=== PATIENT | male | born 1975 | race Caucasian/White ===

== ENCOUNTER 2021-02-15 17:46 | Emergency (ER) | payer BC, SELFPAY ==
[2021-02-15 17:47] VITALS: BP 110/72; PULSE 103; PULSE 89; RESP 16; RESP 18; TEMP 37.6; O2SAT 96; BMI 25.0
--- NOTE | 2021-02-15 18:31 | EX.ED.DYSGE1 ---
HPI History of Present Illness Chief Complaint: Cold Sx Informant: patient Narrative Narrative: Patient presents with nasal congestion and a lot of clear rhinorrhea. He states everyone in his family has had this. His biggest concern is that he does not have Covid before he goes back to work. Work does no longer do Covid testing. He has not been coughing or short of breath. He has a little bit of pressure at the nose. He felt a little bit dizzy this morning but that is better. His had the exact same symptoms. Nothing specifically makes his symptoms better or worse. Patient is overall healthy. No chronic medical conditions No allergies No medications. PFSH PFSH no medical history Allergy/AdvReac Type Severity Reaction Status Date / Time No Known Allergies Allergy Verified 06/30/17 14:10 Social History Smoking Status: Never smoker ROS ROS ED Constitutional Constitutional ED: Denies chills, fever(s) or sweats Eyes Eyes: Denies blurry vision, change in vision or diplopia ENT ENT ED: Reports rhinorrhea; Denies ear pain or sore throat Cardiovascular Cardiovascular: Denies chest pain or palpitations Respiratory/Chest Respiratory/Chest: Denies cough or dyspnea Gastrointestinal Gastrointestinal: Denies abdominal pain, nausea or vomiting Integumentary Denies rash Neurologic Neurologic: Denies headache(s), paresthesias or weakness Allergic/Immunologic Allergic/Immunologic ED: Denies mouth swelling or tongue swelling EXAM Physical Exam Const Vital Signs: 02/15/21 17:47 02/15/21 18:36 Temperature 99.6 F H Temperature Source Temporal Pulse Rate 103 H Respiratory Rate 18 Respiratory Effort Normal Non-Labored Respiratory Pattern Normal Blood Pressure 110/72 Blood Pressure Mean 84 Pulse Ox 96 Oxygen Delivery Method Room Air Positive well nourished and well developed General Appearance ED: well developed and NAD HEENT Reports TM's clear and moist mucous membranes HEENT Narrative: Oropharynx is clear. There is some mild clear rhinorrhea. No purulent discharge. No sinus tenderness. Negative for trauma Tympanic Membrane ED: Yes TM's clear Eyes EOMs intact bilaterally Neck no lymphadenopathy and supple Chest Wall inspection of chest normal Resp normal respiratory effort and clear to auscultation bilaterally Auscultation: Negative for wheezes Cardio regular rate and regular rhythm GI normal to inspection, nondistended, normoactive bowel sounds and non-tender Palpation: soft Extremity normal to inspection Neuro Sensorium / Orientation: alert Psych mental status grossly normal Skin no rashes or lesions noted MDM MDM MDM Narrative Medical decision making narrative: Patient will be screened for Covid. He would like to go home pending the study. His symptoms match a mild viral illness. I do not think he needs antibiotics or any other therapy. Discharge Plan Triage Chief Complaint: Cold Sx ED Provider: Daniel Delvalle Dx/Rx/DC Orders Clinical Impression: URI (upper respiratory infection) Primary Care Provider: Care Physician,Marquita Primary Referrals: Care Physician,No Primary [Primary Care Provider] - Tim Rodriguez DO [STAFF PHYSICIAN] - As Needed Disposition Disposition: Home, Self Care
== END 2021-02-15 19:08 | disposition home or self-care (01) ==
LOC: ED 19:07
PROVIDERS: Emergency Provider Emergency Medicine
DX: J06.9 Acute upper respiratory infection, unspecified (principal)
CPT/HCPCS: 87426; 99283

== ENCOUNTER 2023-05-23 22:57 | Emergency (ER) | payer BC, SELFPAY ==
[2023-05-23 22:58] VITALS: BP 133/93; PULSE 86; RESP 16; TEMP 35.8; O2SAT 98
[2023-05-23 23:08] VITALS: BMI 27.0
--- NOTE | 2023-05-23 23:09 | EDS_ITS ---
HPI History of Present Illness Chief Complaint: Lower Extremity Injury Detail of Chief Complaint: Left knee injury Informant: patient and spouse/S.O. Narrative Narrative: Patient presents secondary to left knee injury. Patient states he walked into the living room and got picked up by his 17-year-old son. When he got put down he was off balance. He stepped down with his left foot but twisted his knee and fell. He felt a popping sensation in his left knee and has pain with any weightbearing since that time. He did take 1 tablet of ibuprofen at home prior to arrival. He denies any other injury. PFSH PFSH Medical History no medical history no medical history Home Medications hydrocodone-acetaminophen 5-325mg 5mg-325mg 1 tab PO Q6H PRN PRN Pain 3 days #10 TABLETS 05/23/23 [Rx Last Taken Unknown] naproxen 500 mg tablet (Naprosyn) 500 mg PO BID PRN pain #20 tabs 05/23/23 [Rx Last Taken Unknown] Allergy/AdvReac Type Severity Reaction Status Date / Time No Known Allergies Allergy Verified 06/30/17 14:10 Social History Smoking Status: Never smoker ROS ROS ED Constitutional Constitutional ED: Denies chills or fever(s) Eyes Eyes: Denies change in vision or discharge from eye(s) ENT ENT ED: Denies discharge from eye(s), rhinorrhea or sore throat Cardiovascular Cardiovascular: Denies chest pain Respiratory/Chest Respiratory/Chest: Denies cough or dyspnea Gastrointestinal Gastrointestinal: Denies abdominal pain, nausea or vomiting Musculoskeletal Musculoskeletal: Reports extremity pain; Denies back pain Integumentary Denies Abrasions or rash Neurologic Neurologic: Denies headache(s) Psychiatric Psychiatric: Denies anxiety or depression Allergic/Immunologic Allergic/Immunologic ED: Denies lip swelling or urticaria EXAM Physical Exam Const Vital Signs: 05/23/23 22:58 Temperature 96.5 F L Temperature Source Temporal Pulse Rate 86 Respiratory Rate 16 Blood Pressure 133/93 H Blood Pressure Mean 106 Pulse Ox 98 Oxygen Delivery Method Room Air Positive well nourished and well developed General Appearance ED: well developed HEENT Reports moist mucous membranes Eyes PERRL Neck full ROM Chest Wall inspection of chest normal Resp normal respiratory effort Cardio regular rate and regular rhythm Extremity Extremity Narrative: Mild edema noted to the left knee. Ligaments tight on testing. Patient is able to straight leg raise his foot off the bed. Neuro oriented x3 and no sensory deficits noted Psych mental status grossly normal Skin no wounds Lesions: no lesions Rashes: no rashes MDM MDM MDM Narrative Medical decision making narrative: Patient took 200 mg of ibuprofen prior to arrival. He is given 600 mg of ibuprofen here along with 1 tab of [place]. Ice pack placed to the left knee. Left knee x-rays obtained to evaluate for fracture, dislocation, effusion. Radiography Diagnostic Testing: Clinical Impression(s) from Imaging Studies Knee X-Ray 05/23/23 23:25 IMPRESSION: Mild joint effusion. Otherwise unremarkable x-ray of the knee with no distinct fracture or subluxation. Electronically Signed: Dora Diaz MD at 23:41 EDT , Treatment and Re-Evaluation Narrative: Left knee x-rays per my interpretation reveal no bony fracture or dislocation. Small joint effusion noted. Radiology interpretation reviewed and agrees. Layo wrap applied to the knee and patient be given crutches. He may weight-bear as tolerated. He is referred to Dr. Ybarra, on-call for orthopedics for follow-up as needed. Patient be given a prescription for naproxen along with [place] for breakthrough pain. Discharge Plan Triage Chief Complaint: Lower Extremity Injury ED Provider: Kristine Oneal Dx/Rx/DC Orders Clinical Impression: Left knee sprain Instructions: ED Knee Sprain Prescriptions: New naproxen [Naprosyn] 500 mg tablet 500 mg PO BID PRN (Reason: pain) Qty: 20 0RF hydrocodone-acetaminophen 5-325 mg tablet 1 tab PO Q6H PRN PRN (Reason: Pain) 3 Days Qty: 10 0RF Primary Care Provider: Care Physician,No Primary Referrals: Aime Ybarra DO [Med Staff - Active Staff] - 5-7 Days Care Physician,No Primary [Primary Care Provider] - Disposition Disposition: Home, Self Care
[2023-05-23] MEDS: Ibuprofen 600 MG Tablet PO (23:13)
[2023-05-23] MEDS: HYDROcodone Bitartrate/Apap 5/325 Tablet PO (23:13)
--- NOTE | 2023-05-23 23:25 | RAD_ITS ---
STUDY: X-RAY - LEFT KNEE REASON FOR EXAM: Male, 48 years old. injury TECHNIQUE: 4 view(s) of the knee. COMPARISON: None. FINDINGS: Normal visualized distal femur. Normal visualized proximal tibia and fibula. Normal proximal tibiofibular articulation. There is no demonstrated fracture. Normal medial femorotibial compartment. Normal lateral femorotibial compartment. Normal patellofemoral articulation. Mild joint effusion. The soft tissue structures are unremarkable. RAD/Knee 4 or More Views IMPRESSION: Mild joint effusion. Otherwise unremarkable x-ray of the knee with no distinct fracture or subluxation. Electronically Signed: Dora Diaz MD at 23:41 EDT ,
[2023-05-24 00:06] VITALS: PULSE 81; RESP 18; O2SAT 98
== END 2023-05-24 00:07 | disposition home or self-care (01) ==
PROVIDERS: Emergency Provider Emergency Medicine; Visit Provider Emergency Medicine
DX: S83.92XA Sprain of unspecified site of left knee, initial encounter (principal); W19.XXXA Unspecified fall, initial encounter
CPT/HCPCS: 73564; 99283

== ENCOUNTER 2024-11-26 22:25 | Emergency (ER) | payer BC, SELFPAY ==
[2024-11-26 22:26] VITALS: BP 130/99; PULSE 96; RESP 15; TEMP 36; O2SAT 95; BMI 3807.9
[2024-11-26] MEDS: Lidocaine 1% (20 ml mdv) 20 ML Vial INFILT (23:05)
[2024-11-26] MEDS: Diphth,Pertuss(Acell),Tet Vac 0.5 ML Vial IM (23:05)
[2024-11-26] MEDS: Cephalexin 250 MG Capsule 500 MG PO (23:38)
[2024-11-26 23:41] VITALS: BP 135/74; PULSE 69; RESP 18; TEMP 36.4; O2SAT 100
--- NOTE | 2024-11-26 23:49 | EX.ED.GENINJ ---
HPI History of Present Illness Chief Complaint: Laceration Informant: patient and spouse/S.O. Narrative Narrative: 49-year-old male presenting to the emergency room with laceration left thumb. Patient states around 1100 hrs. today he was using a pair of scissors to cut the electrical cord of a trailer. States that the scissors accidentally went into the left thumb on the dorsal surface near the joint. He also notes a puncture wound over the medial aspect of the proximal phalanx and a wound on the dorsum of the left index finger. States it is continued to bleed and be sore. Tetanus Immunization: >10 years [facility] Medical History no medical history Home Medications ?Medication ?Instructions ?Recorded ?Last Taken ?Type cephalexin 500 mg capsule 500 mg PO Q6 #28 CAPSULES 11/26/24 Unknown Rx Allergy/AdvReac Type Severity Reaction Status Date / Time No Known Allergies Allergy Verified 11/26/24 22:26 Surgical History no surgical history Social History Smoking Status: Never smoker ROS ROS ED Constitutional Constitutional ED: Denies chills or weight loss Eyes Eyes: Denies change in vision or diplopia ENT ENT ED: Denies ear pain, rhinorrhea or sore throat Cardiovascular Cardiovascular: Denies chest pain, orthopnea, palpitations or racing heartbeat Respiratory/Chest Respiratory/Chest: Denies cough, dyspnea or orthopnea Gastrointestinal Gastrointestinal: Denies abdominal pain, diarrhea, nausea or vomiting Genitourinary Genitourinary ED: Denies dysuria, hematuria or urinary frequency Musculoskeletal Musculoskeletal: Denies arthralgias or myalgias Integumentary Reports other Details: See history of present illness ; Denies abscess or rash Neurologic Neurologic: Denies headache(s) or weakness Psychiatric Psychiatric: Denies anxiety, depression, suicidal ideation or suicidal thoughts Endocrine Endocrinology: Denies polydipsia, polyphagia or polyuria Allergic/Immunologic Allergic/Immunologic ED: Denies mouth swelling, tongue swelling or urticaria EXAM Physical Exam Const Vital Signs: 11/26/24 22:26 11/26/24 23:41 Temperature 96.8 F L 97.6 F L Temperature Source Temporal Pulse Rate 96 69 Respiratory Rate 15 18 Blood Pressure 130/99 H 135/74 H Blood Pressure Mean 109 94 Pulse Ox 95 100 Oxygen Delivery Method Room Air Positive well nourished and well developed General Appearance ED: well developed HEENT Reports normocephalic, head/scalp atraumatic and moist mucous membranes Eyes PERRL and EOMs intact bilaterally Neck no lymphadenopathy, supple and no JVD Resp normal respiratory effort and clear to auscultation bilaterally Cardio regular rate, regular rhythm and no murmurs GI normal to inspection, nondistended, normoactive bowel sounds and non-tender Palpation: soft Back/Spine no CVA tenderness and normal ROM Extremity Extremity Narrative: There is a 1 cm laceration full-thickness over the dorsum of the interphalangeal joint of the left thumb. On the medial aspect of the proximal phalanx is a small puncture wound. There is also superficial abrasion to the dorsum of the proximal left index finger. He has normal sensation excellent capillary refill. He has normal extension. No obvious deformity. General Extremety ED: Negative for edema General Extremity: Negative for edema Neuro oriented x3 and CN's II-XII intact bilaterally Sensorium / Orientation: alert Motor Exam: strength 5/5 throughout Psych mental status grossly normal Mood & Affect: Negative for depressed or tearful Skin no rashes or lesions noted and no wounds MDM MDM MDM Narrative Medical decision making narrative: Differential diagnosis includes laceration foreign body joint injury tendon injury ligamentous injury Local lidocaine was used to anesthetize the laceration. In a bloodless field I was able to explore the wound and I see visualization what is most likely to be joint ligament. Wound was irrigated with saline and washed with Shur-Clens no foreign bodies were noted. It was closed using 3 simple erupted 4-0 Ethilon sutures. Bacitracin was applied to the wounds as well as Telfa and then Coban to help limit range of motion. I recommend using the Coban until stitches are removed to help limit the range of motion and local wound care discussed with patient. I will also write for him to have Keflex. Patient and family understand local wound care. And return instructions History & Record Review Discussion w/independent historian: Family Discharge Plan Triage Chief Complaint: Laceration ED Provider: Ernie Szymanski Dx/Rx/DC Orders Clinical Impression: Laceration of thumb Instructions: ED Laceration, Hand: All Closures Prescriptions: New cephalexin 500 mg capsule 500 mg PO Q6 Qty: 28 0RF Primary Care Provider: Care Physician,No Primary Referrals: David Martinez MD [Med Staff - Active Staff] - (for hand surgery if any instability of joint or weakness) Care Physician,No Primary [Primary Care Provider] - Activity Restrictions/Additional Instructions: Stitches do need to be removed in close to 10 days. Local wound care as we discussed with antibiotic ointment once a day. Use Coban to help limit the range of motion at that joint until you are healed. Print Language: French Disposition Disposition: Home, Self Care Discharge Date/Time: 11/26/24 23:42
== END 2024-11-26 23:42 | disposition home or self-care (01) ==
PROVIDERS: Emergency Provider Emergency Medicine; Visit Provider Emergency Medicine
DX: S61.012A Laceration without foreign body of left thumb without damage to nail, initial encounter (principal); W26.8XXA Contact with other sharp object(s), not elsewhere classified, initial encounter; Z23 Encounter for immunization
CPT/HCPCS: 12001; 90471; 90715; 99283